=== PATIENT | male | born 1980 | race Caucasian/White ===

== ENCOUNTER → 2021-11-02 | Outpatient (CLI) | payer OTHER ==
[2021-11-02 09:48] LABS: HEMOGLOBIN 12.2 gm/dl (14.0-17.5); RED BLOOD COUNT 5.74 M/UL (4.20-5.50); WHITE BLOOD COUNT 7.8 K/UL (4.5-11.0)
== END ==
LOC: LAB 09:28
PROVIDERS: Internal Medicine
DX: D50.9 Iron deficiency anemia, unspecified (principal); R53.83 Other fatigue
CPT/HCPCS: 36415; 83540; 83550; 85027

== ENCOUNTER → 2021-12-24 | Outpatient (CLI) | payer OTHER | LOC: CT 12:08 | DX: C20 Malignant neoplasm of rectum (principal) | CPT/HCPCS: 36415; 71260; 82565; 84520; Q9967 ==